=== PATIENT | female | born 1990 | race Two or more races ===

== ENCOUNTER 2018-05-15 10:24 | Emergency (ER) | payer MEDICAID, OTHER ==
[~2018-05-15] VITALS: Ht 167.6 cm; Wt 94.0 kg
[2018-05-15] MEDS ORDERED: HYDROCODONE/ACETAMINOPHEN 5/325MG TABLET PO ONE (11:30)
[2018-05-15] MEDS ORDERED: MORPHINE SULFATE 4 MG/ML CPJ (NOT FOR IM USE) IV ONE (12:45)
[2018-05-15 13:07] LABS: HEMATOCRIT 38.8 % (36.0-48.0); HEMOGLOBIN 13.2 g/dL (12.0-16.0); MEAN CORPUSCULAR HEMOGLOBIN 27.4 pg (28.0-32.0); MEAN CORPUSCULAR VOLUME 80.8 fL (81.0-99.0); PLATELET 360 x1000/uL (130-400); RED CELL DISTRIBUTION WIDTH 13.1 % (11.6-14.6)
[2018-05-15 13:11] LABS: CHLORIDE 107 mEq/L (98-107)
[2018-05-15 17:07] VITALS: BP 131/98
[2018-05-15] MEDS ORDERED: IOHEXOL-350 100 ML BOTTLE ONE (17:14)
== END 2018-05-15 17:10 | disposition home or self-care (01) ==
LOC: ER 10:33
DX: M79.622 Pain in left upper arm (principal); M54.2 Cervicalgia; M54.5 Low back pain; R10.84 Generalized abdominal pain; V43.52XA Car driver injured in collision with other type car in traffic accident, initial encounter; Y93.89 Activity, other specified; Y92.488 Other paved roadways as the place of occurrence of the external cause
CPT/HCPCS: 36415; 70450; 71045; 71260; 72125; 73030; 73060; 74177; 80048; 81025; 85027; 96374; 99284; J2270; Q9967; L0172